=== PATIENT | female | born 1995 | race Caucasian/White ===

== ENCOUNTER 2020-12-28 05:41 | Inpatient (IN) | payer OTHER ==
[~2020-12-28] VITALS: Ht 160 cm; Wt 67.1 kg
[~2020-12-28 05:41] MED LIST: NORCO 5-325 TA1 EACH PO
[2020-12-28 07:41] LABS: HEMOGLOBIN 8.5 gm/dl (12.3-15.3); RED BLOOD COUNT 3.62 M/UL (4.00-5.10); WHITE BLOOD COUNT 11.4 K/UL (4.5-11.0)
[2020-12-28] MEDS ORDERED: IBUPROFEN600 MG PO (07:52)
[2020-12-28] MEDS ORDERED: HYDROCODON-ACE1 EAC4 PO (07:52)
[2020-12-28] MEDS ORDERED: DOCUSATE SODIU100 MG PO (07:52)
[2020-12-28 08:07] LABS: BUN/CREATININE RATIO 9 (0-10)
[2020-12-29 07:16] LABS: HEMOGLOBIN 9.3 gm/dl (12.3-15.3)
== END 2020-12-29 17:15 | disposition home or self-care (01) | DRG 787 ==
LOC: OB 05:41
PROVIDERS: ADMIT Obstetrics & Gynecology
PROC: 4A1HXCZ Monitoring of Products of Conception, Cardiac Rate, External Approach (ICD-10-PCS; 2020-12-28)
PROC: 10D00Z1 Extraction of Products of Conception, Low, Open Approach (ICD-10-PCS; principal; 2020-12-28 09:00)
DX: O34.211 Maternal care for low transverse scar from previous cesarean delivery (principal); O41.03X0 Oligohydramnios, third trimester, not applicable or unspecified; Z37.0 Single live birth; O24.420 Gestational diabetes mellitus in childbirth, diet controlled; Z3A.37 37 weeks gestation of pregnancy; Z20.822 Contact with and (suspected) exposure to COVID-19; Z90.49 Acquired absence of other specified parts of digestive tract
CPT/HCPCS: 36415; 80053; 81001; 82800; 82962; 85014; 85018; 85025; 90715; C9113; J0690; J2210; J2274; J2370; J2405; J2590; J7030; J7120; U0002